=== PATIENT | male | born 1955 | race Hispanic/Latino ===

== ENCOUNTER → 2020-05-25 | Outpatient (CLI) | payer OTHER ==
[~2020-05-25] MED LIST: ALLO100T PO; ALPR0.5T8 PO; AMLO-257 PO; CYAN-52 PO; DIGO250T73 PO; DOXY100T2 PO; FOLI0.8T PO; LISI-613 PO; METO-409 PO; OMEP20CA12 PO; TERB250T51 PO; WARF-57 PO
== END | disposition home or self-care (01) ==
LOC: RAH 15:02
PROVIDERS: ATTEND Internal Medicine Cardiovascular Disease
DX: Z13.6 Encounter for screening for cardiovascular disorders (principal); I51.7 Cardiomegaly
CPT/HCPCS: 75571

== ENCOUNTER → 2020-09-08 | Outpatient (CLI) | payer OTHER ==
[~2020-09-08] MED LIST changes: -FOLI0.8T PO; +FOLI0.8T3 PO; -LISI-613 PO; +LISI20TA24 PO
== END | disposition home or self-care (01) ==
LOC: SHCH 09:04
PROVIDERS: ATTEND Internal Medicine Cardiovascular Disease
DX: I25.10 Atherosclerotic heart disease of native coronary artery without angina pectoris (principal); I10 Essential (primary) hypertension
CPT/HCPCS: 93306